=== PATIENT | male | born 1950 | race Caucasian/White ===

== ENCOUNTER 2023-05-15 06:23 | Day surgery (SDC) | payer BC, MEDICARE ==
[2023-05-09 11:37] LABS: BASOPHILS % (AUTO) 0.4 % (0-1); EOSINOPHILS # (AUTO) 0.2 X10'3 (0-0.9); EOSINOPHILS % (AUTO) 2.1 % (0-6); LYMPHOCYTES # (AUTO) 2.1 X10'3 (1.1-4.8); LYMPHOCYTES % (AUTO) 29.5 % (21-51); MEAN CORPUSCULAR HEMOGLOBIN 30.3 PG (27.0-31.0); MEAN CORPUSCULAR HGB CONC 33.8 g/dL (33.0-36.5); MEAN CORPUSCULAR VOLUME 89.6 FL (78-98); MEAN PLATELET VOLUME 8.4 FL (7.4-10.4); MONOCYTES # (AUTO) 0.6 X10'3 (0-0.9); NEUTROPHILS # (AUTO) 4.3 X10'3 (1.8-7.7); PRE OP HEMATOCRIT 44.9 % (42.0-52.0); PRE OP HEMOGLOBIN 15.2 g/dL (14.0-17.9); PRE OP PLATELET COUNT 227 X10'3 (140-440); RED BLOOD COUNT 5.01 X10'6 (4.70-6.10); RED CELL DISTRIBUTION WIDTH 13.2 % (11.5-14.5)
[2023-05-09 11:48] LABS: ALBUMIN 3.9 G/DL (3.4-5.0); ALBUMIN/GLOBULIN RATIO 1.2 (1.1-1.5); ALKALINE PHOSPHATASE 85 IU/L (46-116); BLOOD UREA NITROGEN 18 MG/DL (7-18); BUN/CREATININE RATIO 16.4 (10.0-20.0); CALCIUM 8.8 MG/DL (8.5-10.1); CHLORIDE 104 MMOL/L (99-107); PRE OP ALT 27 U/L (30-65); PRE OP ANION GAP 9 (8-16); PRE OP AST 22 U/L (10-37); PRE OP BILIRUB, TOTAL 0.6 MG/DL (0.0-1.0); PRE OP GLUCOSE 130 MG/DL (70-104); PRE OP SODIUM 139 MMOL/L (135-145); TOTAL CARBON DIOXIDE 26.5 MMOL/L (24-32); TOTAL PROTEIN 7.2 G/DL (6.4-8.2); eGFR 66 ML/MIN
[~2023-05-15] VITALS: Ht 180.3 cm; Wt 103.1 kg
[2023-05-15] VITALS (36 sets, daily range): BP systolic 99–149; BP diastolic 49–76
[~2023-05-15 06:23] MED LIST: ALLO100T56 PO; ASPI-1071 PO; BACL-11 PO; CHOL400T58 PO; CYAN250010 PO; IBUP-1984 PO; PSYL575P22 PO; SIMV-343 PO; acetaminophen 325mg tablet PO ONE; cefazolin 2gm/D5W 100mL 100 ML IV ONE; celeCOXIB 100mg capsule PO ONE; famotidine 20mg tablet PO ONE; gabapentin 300mg capsule PO ONE; metoclopramide 5 mg/ml inj IV ONE; oxyCODONE SR 10mg (sust. release) tab PO ONE; ringers solution, lacted 1,000 ML IV SCH; tranexamic acid inj. 1,000 MG in normal saline IV soln 100ML IV ONE; vancomycin 1,500 MG in NS 300ml IV soln IV ONE
[2023-05-15] MEDS ORDERED: HYDROcodone/acetaminophen 10/325mg tab PO PRN (07:05)
[2023-05-15] MEDS ORDERED: naloxone 0.4 mg/ml inj IV PRN (07:05)
[2023-05-15] MEDS ORDERED: acetaminophen 325mg tablet PO PRN (07:05)
[2023-05-15] MEDS ORDERED: bisacodyl 10mg suppository rectal RC PRN (07:05)
[2023-05-15] MEDS ORDERED: diphenhydrAMINE 25mg capsule PO PRN ×2 (07:05)
[2023-05-15] MEDS ORDERED: magnesium hydroxide 30ml (MOM) UD suspension PO PRN (07:05)
[2023-05-15] MEDS ORDERED: HYDROmorphone 1 mg/ml syringe IV PRN (07:05)
[2023-05-15] MEDS ORDERED: ondansetron/PF 4mg/2ml inj IV PRN ×2 (07:05→14:10)
[2023-05-15] MEDS ORDERED: HYDROmorphone inj. 0.5 MG/0.5 ML DISP.SYRIN IV PRN (07:05)
[2023-05-15] MEDS ORDERED: epiNEPHrine 1 mg/ml inj ONE ×2 (08:09→14:04)
[2023-05-15] MEDS ORDERED: cloNIDine hcl/PF 100mcg/ml inj ONE ×2 (08:09→14:04)
[2023-05-15] MEDS ORDERED: ROPIVAcaine 0.5% (5mg/ml) 30ml vial ONE ×2 (08:10→14:04)
[2023-05-15] MEDS ORDERED: vancomycin 1,000mg inj ONE ×2 (08:10→14:04)
--- NOTE | 2023-05-15 08:30 | NUR ---
PT ABLE TO COMPLETE ALL SHOWERS, CSM INTACT-BLE, ABLE TO REVIEW ALL JOINT RESOURCES
[2023-05-15] MEDS ORDERED: ketorolac trometh. 30mg/ml inj. ONE ×2 (09:25→14:54)
[2023-05-15] MEDS ORDERED: MIDAZolam 1 MG/ML 5ML VIAL ONE (10:16)
[2023-05-15] MEDS ORDERED: fentaNYL/PF 50MCG/1 ML 2ML syringe ONE ×2 (10:16→14:17)
--- NOTE | 2023-05-15 11:00 | NUR ---
Received from OR via HOSPITAL BED, accompanied by Anesthesiologist DR WHITTAKER and report given by Anesthesiologist. PT IS GROGGY BUT RESPONDS TO VERBAL STIMULI AND FOLLOWS COMMANDS. PT SURGERY POSTPONED AND SHOULD GO LATER TODAY. PT RECEIVED SEDATION. PT HAS 20G PIV TO RT HAND WITH LR INFUSING ORDERED. PT DENIES PAIN AT THIS TIME. WILL CONTINUE TO ASSESS
--- NOTE | 2023-05-15 12:00 | NUR ---
PT REMAINS IN PACU MOVED FROM RM 6 TO 11, AWAITING SURGERY. VSS, PT PLACED ON BEDSIDE MONITOR. WILL CONTINUE TO ASSESS
[2023-05-15] MEDS ORDERED: tranexamic acid inj. 1,000 MG in normal saline 100ml IV soln 90 ML IV ONE (14:00)
[2023-05-15] MEDS ORDERED: morphine 2 MG/ML inj. syringe IV PRN (14:10)
[2023-05-15] MEDS ORDERED: hydrALAZINE 20mg/ml inj. IV PRN (14:10)
[2023-05-15] MEDS ORDERED: fentaNYL/PF 50MCG/1 ML 2ML syringe IV PRN ×2 (14:10)
[2023-05-15] MEDS ORDERED: morphine 4 MG/ML inj SYRINge IV PRN (14:10)
[2023-05-15] MEDS ORDERED: labetalol 20mg/4ml (5mg/ml) syringe IV PRN (14:10)
[2023-05-15] MEDS ORDERED: ringers solution, lacted 1,000 ML IV SCH (14:10)
[2023-05-15] MEDS ORDERED: vancomycin 1,000mg inj IVT ONE (15:21)
--- NOTE | 2023-05-15 15:50 | NUR ---
PT ARRIVED TO [facility] BED ACCOMPANIED BY DR. WHITTAKER-ANESTHESIA REPORT GIVEN, PT AWAKE, DENIES PAIN, SENSATION AT T-9, MERLY DRSG PRESENT-CDI, +PULSES PRESENT BLE, LEG BRACE TO LEFT LEG, NEURO INTACT, 20G PIV TO RIGHT HAND, SCDS ON.
--- NOTE | 2023-05-15 17:24 | NUR ---
received report from precision lens generator, room is not finished being cleaned by evs, therefore pt is unable to be delivered to floor, also precision lens generator told me that the iv afternoon medications have not been administered by the precision lens generator therefore depending on the time the patient arrives to floor and the delivery of medications, pt medications will be hung late
--- NOTE | 2023-05-15 18:15 | NUR ---
Report called to receiving nurse. Transferred via ORTHO BED TO ROOM [id number] Belongings . Special Issues communicated to receiving nurse.
--- NOTE | 2023-05-15 18:22 | NUR ---
gave report to dian knowles and patient just arrived to floor
[2023-05-15] MEDS: HYDROcodone/acetaminophen 10/325mg tab PO PRN (19:00)
[2023-05-15] MEDS ORDERED: VANCOMYCIN 1,500MG inj. 1,500 MG in normal saline 500ml IV soln 300 ML IV ONE (20:00)
[2023-05-15] MEDS: gabapentin 300mg capsule PO SCH (20:45)
[2023-05-15] MEDS: ascorbic acid 500mg tablet PO SCH (20:45)
[2023-05-15] MEDS: potassium cl 20mEq in 1/2 NS 1,000 ML IV SCH ×2 (20:49→21:43)
[2023-05-15] MEDS ORDERED: sennosides 8.6mg tablet PO SCH (21:00)
[2023-05-16] MEDS: HYDROcodone/acetaminophen 10/325mg tab PO PRN ×2 (01:25→05:20)
[2023-05-16 02:00] VITALS: BP 117/62
[2023-05-16 06:00] VITALS: BP 110/61
[2023-05-16 06:16] LABS: BASOPHILS % (AUTO) 0.4 % (0-1); EOSINOPHILS # (AUTO) 0.2 X10'3 (0-0.9); EOSINOPHILS % (AUTO) 1.8 % (0-6); HEMATOCRIT 37.1 % (42.0-52.0); HEMOGLOBIN 12.7 g/dl (14.0-17.9); LYMPHOCYTES # (AUTO) 1.7 X10'3 (1.1-4.8); LYMPHOCYTES % (AUTO) 19.6 % (21-51); MEAN CORPUSCULAR HEMOGLOBIN 30.9 PG (27.0-31.0); MEAN CORPUSCULAR HGB CONC 34.3 g/dL (33.0-36.5); MEAN CORPUSCULAR VOLUME 89.9 FL (78-98); MEAN PLATELET VOLUME 8.4 FL (7.4-10.4); MONOCYTES # (AUTO) 0.9 X10'3 (0-0.9); NEUTROPHILS # (AUTO) 5.9 X10'3 (1.8-7.7); NEUTROPHILS % (AUTO) 68.2 % (42-75); PLATELET COUNT 210 X10'3 (140-440); RED BLOOD COUNT 4.12 X10'6 (4.70-6.10); RED CELL DISTRIBUTION WIDTH 13.3 % (11.5-14.5); WHITE BLOOD COUNT 8.6 X10'3 (4.5-11.0)
[2023-05-16 06:24] LABS: ANION GAP 7 (8-16); CHLORIDE 101 MMOL/L (99-107); POTASSIUM 4.1 MMOL/L (3.5-5.1); SODIUM 136 MMOL/L (135-145); TOTAL CARBON DIOXIDE 28.2 MMOL/L (24-32)
--- NOTE | 2023-05-16 06:30 | NUR ---
Problems reprioritized. Patient report given, questions answered & plan of care reviewed with NGHIA GLASS.
[2023-05-16] MEDS: ascorbic acid 500mg tablet PO SCH (07:43)
[2023-05-16] MEDS: gabapentin 300mg capsule PO SCH (07:43)
[2023-05-16] MEDS: potassium cl 20mEq in 1/2 NS 1,000 ML IV SCH (07:47)
[2023-05-16] MEDS ORDERED: multivitamins, therapeutics tablet PO SCH (08:00)
[2023-05-16] MEDS ORDERED: allopurinol 100mg tablet PO SCH (08:00)
[2023-05-16] MEDS ORDERED: baclofen 10mg tablet PO SCH (08:00)
[2023-05-16] MEDS ORDERED: atorvastatin 20mg tablet PO SCH (08:00)
[2023-05-16] MEDS ORDERED: aspirin 325mg tablet PO SCH (08:30)
--- NOTE | 2023-05-16 08:48 | NUR ---
Joint surgery consult: Pt s/p L hip surgery this admit per EMR. Pt seen by MILLY for written/verbal high protein diet ed w/ RD contact information provided. MILLY encouraged pt to contact dietitian's office if further nutrition questions/concerns. Addendum: 05/16/23 at [address] Amended: Links added.
[2023-05-16 10:00] VITALS: BP 125/74
--- NOTE | 2023-05-16 12:00 | NUR ---
I have reviewed and agree with interventions, assessments, and documentation by Mechelle Gomez LVN.
--- NOTE | 2023-05-16 12:45 | NUR ---
Patient discharged home with family via POV. Personal belongings sent with, PIV discontinued, tip in tact. Patient alert and appropriate at the time of discharge.
[2023-05-16] MEDS ORDERED: celeCOXIB 100mg capsule PO SCH (20:00)
== END 2023-05-16 12:45 | disposition home or self-care (01) ==
LOC: PAS 06:23 → ORTHO 4S 18:15 → PAS 05-16 12:45
PROVIDERS: ATTEND Orthopaedic Surgery
DX: M16.12 Unilateral primary osteoarthritis, left hip (principal); M10.9 Gout, unspecified; Z87.891 Personal history of nicotine dependence; Z72.89 Other problems related to lifestyle; Z79.899 Other long term (current) drug therapy; Z79.82 Long term (current) use of aspirin; Z98.890 Other specified postprocedural states
CPT/HCPCS: 27130; 36415; 71046; 72170; 80051; 80053; 82948; 85025; 86885; 86900; 86901; 87081; 93005; 97110; 97116; 97161; C1776; J0171; J0690; J0735; J1170; J1885; J2250; J2765; J2795; J3010; J3370; J3480; J3490; J7030; J7040; J7060; J7120; Z7506; Z7508; Z7512; A7000; G0378